=== PATIENT | female | born 1960 | race American Indian/Alaskan Native ===

== ENCOUNTER 2018-07-08 00:48 | Inpatient (IN) | payer MEDICAID ==
[2018-07-08 01:00] VITALS: O2SAT 100
--- NOTE | 2018-07-08 01:11 | ED PDOC ---
Psych Transfer Clearance - Clearance Statement Clearance Statement: Reviewed vital signs, lab results and transfer papers. Patient clinically stable for psychiatric admission. Accepted by Dr. Rebolledo, Cleared by Dr. Zuniga.
[2018-07-08] MEDS ORDERED: DiphenhydrAMINE 50 mg/ml Inj IM PRN (01:37)
[2018-07-08] MEDS ORDERED: Alum-Mag Hydrox-Simethicone Susp (30 mL) PO PRN (01:37)
[2018-07-08] MEDS ORDERED: Magnesium Hydroxide Susp 30 ml UD PO PRN (01:37)
--- NOTE | 2018-07-08 02:22 | PCM.BM ---
<HernandezSydnie - Last Filed: 07/08/18 02:20> Treatment Plan Problems - Problems identified on initial assessmt medication nonadherence Date Initiated: 07/08/18 Time Initiated: : Assessment reference: NA Status: Active self harm Date Initiated: 07/08/18 Time Initiated: : Assessment reference: NA Status: Active Treatment assets and liabiliti Patient Assests: other Patient Liabilities: live alone, physical pain, poor support system - Milieu Protocol Maintain good personal hygiene: daily Encourage regular showers, daily Remind patient to perform daily oral care, daily Assist patient to perform ADL's Conduct patient checks and document Observation sheet: Q15 minutes Maintain personal safety: every shift Educate patient to report safety concerns to staff, every shift Monitor environment for contraband/sharps Medication safety: Monitor for expected outcome, potential side effects: every shift, Assess barriers to learning: every shift, Assess readiness for medication education: every shift Family Contact Family involvement: No known Family/SO <Raquel Rebolledo - Last Filed: 07/08/18 10:18> - Diagnosis (1) Bipolar disorder Status: Acute Interventions: Medication management, Individual and group therapy, Psychoeducation 07/08/18 10:18 <Nhung Guo - Last Filed: 07/09/18 15:58> Family Contact Family involvement: No known Family/SO - Goals for Treatment Patient goals for treatment: Pt will improve overall mood. Pt will be free of suicide thoughts. Pt shaista be compliant with prescribed medications. Pt will attend clinical and activity groups. Pt will develop different coping skills and strategies to distract thoughts when rumintaing on the past. Discharge/Continuing Care - Education Needs Education Needs: Patient Medication, Patient Diagnosis/Disease Process, Patient Coping Skills, Patient Placement options, Patient Community resources, Patient Activities of Daily Living, Patient Uses of Medical Equipment, Patient Health Practices/Safety, Patient Personal Hygiene/Grooming, Patient Aftercare Safety Plan - Discharge Discharge Criteria: Tolerates medication w/o severe side effects, Free of Suicidal thoughts, Free of agitation, Normal sleep pattern, Ability to care for self Discharge to:: Home - Additional Comments 07/09/18 15:55 Pt refused to attend team meeting in the activity room. Interdisciplinary team met with pt at bedside. Pt was observed to be asleep and easily aroused. Pt refused to engage in team meeting at bedside. Pt was irritable and agitated. Reason for admission reviewed and discussed. Pt admitted due to worsening depression and suicide attempt. Pt as a transfer from [facility]. Pt's medications reviewed with attending physician. Pt's social and emotional support is unknown due to pt's poor cooperation. Tx plan reveiwed and discussed. SW will continue to follow case. - Treatment Team Participation Discussed with Family/SO: No Was Patient/Family/SO present at Treatment Team Meeting: Yes
[2018-07-08 07:22] LABS: BASO # 0.1 K/uL (0.0-0.2); BASO % 1.4 % (0.0-2.0); EOS # 0.2 K/uL (0.0-0.7); EOS % 4.4 % (0.0-4.0); HEMOGLOBIN 12.9 g/dL (12.0-16.0); LYMPH # 1.6 K/uL (1.0-4.3); LYMPH % 36.4 % (20.0-40.0); MEAN CELL VOLUME 101.3 fl (81.0-99.0); MEAN CORPUSCULAR HEMOGLOBIN 34.5 pg (27.0-31.0); MEAN CORPUSCULAR HGB CONC 34.1 g/dL (33.0-37.0); MEAN PLATELET VOLUME 8.4 fl (7.2-11.7); MONO # 0.5 K/uL (0.0-0.8); NEUT % 46.8 % (50.0-75.0); RBC 3.74 Mil/uL (3.80-5.20); RED CELL DISTRIBUTION WIDTH 13.9 % (11.5-14.5); WHITE BLOOD COUNT 4.3 K/uL (4.8-10.8)
[2018-07-08 07:30] LABS: ALB/GLOB RATIO 1.3 (1.0-2.1); ALBUMIN 3.9 g/dL (3.5-5.0); ALT/SGPT 12 U/L (9-52); AST/SGOT 19 U/L (14-36); BLOOD UREA NITROGEN 13 mg/dl (7-17); CALCIUM 9.5 mg/dL (8.4-10.2); GFR NON-AFRICAN AMERICAN > 60; HDL CHOLESTEROL 42 MG/DL (30-70)
[2018-07-08 07:41] LABS: LDL CHOLESTEROL 156 mg/dL (0-129)
[2018-07-08 08:20] LABS: T4 6.53 ug/dl (5.5-11.0)
--- NOTE | 2018-07-08 10:24 | PCM.PSYCH ---
Initial Psychiatric Evaluation - Initial Psychiatric Evaluation Type of Admission: Voluntary Legal Status: Capacity Chief Complaint (in patient's own words): "I tried to kill myself." Patient's Reaction to Hospitalization: HPI: 58 yo female w/ h/o Bipolar Disorder, admitted s/p suicide attempt by overdose of 6 Anacin and 2 Motrin, in response to [facility] telling her to kill herself in the context of non-compliance with Zyprexa x 1 month. Patient reports worsening depression, anxiety, sleep/appetite disturbances. She also reports that she has been feeling paranoid that someone wants to harm her. She is able to contract for safety at this time. PPHx: H/o Bipolar disorder; not compliant w/ Zyprexa x 1 month after her psychiatric retired. PMHx: Denies chronic medical issues ALL: NKDA SHx: Lives alone, denies drugs/etoh, smokes 1ppd (declined smoking cessation), on SSD, retired, used to work in medical billing FHx: Denies family h/o mental illness Current Medications: Active Medications Generic Name Dose Route Start Last Admin Trade Name Freq PRN Reason Stop Dose Admin Acetaminophen 650 mg 07/08/18 05:21 Tylenol 325mg Tab PO Q4 PRN Other Al Hydrox/Mg Hydrox/Simethicone 30 ml 07/08/18 01:37 Maalox Plus 30 Ml PO Q4 PRN Dyspepsia Diphenhydramine HCl 50 mg 07/08/18 01:37 Benadryl IM Q6 PRN Extrapyramidal S/S Unable PO Diphenhydramine HCl 50 mg 07/08/18 01:37 Benadryl PO Q6 PRN Extrapyramidal Symptoms Haloperidol 5 mg 07/08/18 01:37 Haldol PO Q4 PRN Agitation Haloperidol Lactate 5 mg 07/08/18 01:37 Haldol IM Q4 PRN Agitation, Unable to Take PO Ibuprofen 600 mg 07/08/18 05:24 Motrin Tab PO Q8 PRN Pain, severe (8-10) Lorazepam 1 mg 07/08/18 02:14 Ativan PO Q8 PRN Agitation Lorazepam 2 mg 07/08/18 02:16 Ativan IM Q6 PRN Agitation Magnesium Hydroxide 30 ml 07/08/18 01:37 Milk Of Magnesia PO HS PRN Constipation Olanzapine 10 mg 07/08/18 22:00 Zyprexa PO HS EMILY Past Psychiatric History - Past Psychiatric History Pertinent Medical Hx (Current Medical&Sleep Prob, Allergies): Allergies Allergy/AdvReac Type Severity Reaction Status Date / Time No Known Allergies Allergy Verified 07/08/18 00:55 Review of Systems - Psychiatric Psychiatric: As Per HPI, Abnormal Sleep Pattern, Anhedonia, Anxiety, Auditory Hallucinations, Behavioral Changes, Change in Appetite, Depression, Difficulty C oncentrating, Hallucinations, Hopelessness, Irritability, Mood Swings, Paranoia, Suicidal Ideation Mental Status Examination - Personal Presentation Personal Presentation: Looks older than stated age - Affect Affect: Constricted, Depressed - Motor Activity Motor Activity: Calm - Reliability in Providing Information Reliability in Providing Information: Fair - Speech Speech: Organized, Coherent - Mood Mood: Depressed, Anxious - Formal Thought Process Formal Thought Process: Paranoia - Obsessions/Compulsions Obsessions: No Compulsions: No - Cognitive Functions Orientation: Person, Place, Situation, Time Sensorium: Alert Judgement: Imparied, as evidence by: Poor judgement Memory: Recent intact, as evidence by: Ability to recall events of the day, Remote intact, as evidenced by: Abilit to recall sig. life events - Risk Risk: Suicidal - Strength & Assets Inventory Strength & Assets Inventory: Cooperative - Limitations Limitations: Living alone DSM 5 DX - DSM 5 DSM 5 Diagnosis: Bipolar Disorder - Recommended/Plan of Treatment Treatment Recommendations and Plan of Treatment: Bipolar Disorder -Admit to psychiatry unit -Individual and group therapy -Psychoeducation -Restart Zyprexa -Medicine consult -Disposition planning -Patient declined smoking cessation Projected ELOS: 7-10 days Discharge Plan and Discharge Criteria: Discharge patient when she is psychiatrically stable - Smoking Cessation Smoking Cessation Initiated: Yes
--- NOTE | 2018-07-08 12:07 | RAD ---
PROCEDURE: Right Hip Radiographs. HISTORY: Right hip pain post fall COMPARISON: None. FINDINGS: BONES: No acute fracture. Right hip osteophytosis. JOINTS: Right hip narrowing with subchondral sclerosis, cystic change. SOFT TISSUES: Normal. OTHER FINDINGS: Calcified uterine fibroid. IMPRESSION: Right hip arthritic changes. No acute fracture.
--- NOTE | 2018-07-08 18:59 | CP.PCM.CON ---
History of Present Illness - History of Present Illness History of Present Illness: 58 yo female with history of bipolar do admitted to psyche unit because of suicide attempt. Also complained of pain on right knee and hip after a fall yesterday. Review of Systems - Review of Systems All systems: reviewed and no additional remarkable complaints except (aside from those mentioned above, 12 point system review were negative by me) Past Patient History - Tetanus Immunizations Tetanus Immunization: Unknown - Past Social History Smoking Status: Heavy Smoker > 10 Cigarettes Daily Chewing Tobacco Use: No Cigar Use: No Alcohol: None Drugs: Denies - CARDIAC Hx Cardiac Disorders: No - PULMONARY Hx Respiratory Disorders: No - NEUROLOGICAL Hx Neurological Disorder: No - HEENT Hx HEENT Problems: No - RENAL Hx Chronic Kidney Disease: No - ENDOCRINE/METABOLIC Hx Endocrine Disorders: No - HEMATOLOGICAL/ONCOLOGICAL Hx Sickle Cell Disease: Yes Hx Unexplained Bleeding: Yes (as per [facility] records) - INTEGUMENTARY Hx Dermatological Problems: No - MUSCULOSKELETAL/RHEUMATOLOGICAL Hx Falls: Yes - GASTROINTESTINAL Hx Gastrointestinal Disorders: No - GENITOURINARY/GYNECOLOGICAL Hx Genitourinary Disorders: No - PSYCHIATRIC Hx Bipolar Disorder: Yes - SURGICAL HISTORY Hx Surgeries: No - ANESTHESIA Hx Anesthesia: No Meds Allergies/Adverse Reactions: Allergies Allergy/AdvReac Type Severity Reaction Status Date / Time No Known Allergies Allergy Verified 07/08/18 00:55 - Medications Medications: Current Medications Acetaminophen (Tylenol 325mg Tab) 650 mg PO Q4 PRN PRN Reason: Other Last Admin: 07/08/18 18:09 Dose: 650 mg Al Hydrox/Mg Hydrox/Simethicone (Maalox Plus 30 Ml) 30 ml PO Q4 PRN PRN Reason: Dyspepsia Diphenhydramine HCl (Benadryl) 50 mg IM Q6 PRN PRN Reason: Extrapyramidal S/S Unable PO Diphenhydramine HCl (Benadryl) 50 mg PO Q6 PRN PRN Reason: Extrapyramidal Symptoms Haloperidol (Haldol) 5 mg PO Q4 PRN PRN Reason: Agitation Haloperidol Lactate (Haldol) 5 mg IM Q4 PRN PRN Reason: Agitation, Unable to Take PO Ibuprofen (Motrin Tab) 600 mg PO Q8 PRN PRN Reason: Pain, severe (8-10) Lorazepam (Ativan) 1 mg PO Q8 PRN PRN Reason: Agitation Lorazepam (Ativan) 2 mg IM Q6 PRN PRN Reason: Agitation Magnesium Hydroxide (Milk Of Magnesia) 30 ml PO HS PRN PRN Reason: Constipation Olanzapine (Zyprexa) 10 mg PO HS EMILY Physical Exam - Constitutional Appears: No Acute Distress - Head Exam Head Exam: ATRAUMATIC - Eye Exam Eye Exam: absent: Scleral icterus - ENT Exam ENT Exam: Mucous Membranes Moist - Neck Exam Neck exam: Negative for: Meningismus - Respiratory Exam Respiratory Exam: absent: Rales, Rhonchi, Wheezes, Respiratory Distress - Cardiovascular Exam Cardiovascular Exam: REGULAR RHYTHM, +S1, +S2 - GI/Abdominal Exam GI & Abdominal Exam: Soft. absent: Tenderness - Rectal Exam Rectal Exam: Deferred - Extremities Exam Extremities exam: Negative for: full ROM (limited ROM on right knee and hip because of pain) - Back Exam Back exam: NORMAL INSPECTION - Neurological Exam Neurological exam: Alert, Oriented x3 - Psychiatric Exam Psychiatric exam: Normal Affect - Skin Skin Exam: Dry, Intact Results - Vital Signs Recent Vital Signs: Last Vital Signs Temp 98.9 F 07/08/18 16:09 Pulse 65 07/08/18 16:09 Resp 19 07/08/18 16:09 BP 119/75 07/08/18 16:09 Pulse Ox 100 07/08/18 00:51 - Labs Result Diagrams: 07/08/18 06:30 07/08/18 06:30 Labs: Laboratory Results - last 24 hr 07/08/18 07/08/18 07/08/18 06:30 06:30 06:30 WBC 4.3 L RBC 3.74 L Hgb 12.9 Hct 37.8 MCV 101.3 H MCH 34.5 H MCHC 34.1 RDW 13.9 Plt Count 255 MPV 8.4 Neut % (Auto) 46.8 L Lymph % (Auto) 36.4 [place] % (Auto) 11.0 H Eos % (Auto) 4.4 H Baso % (Auto) 1.4 Neut # (Auto) 2.0 Lymph # (Auto) 1.6 [place] # (Auto) 0.5 Eos # (Auto) 0.2 Baso # (Auto) 0.1 Sodium 138 Potassium 4.4 Chloride 102 Carbon Dioxide 28 Anion Gap 12 BUN 13 Creatinine 0.8 Est GFR ( Amer) > 60 Est GFR (Non-Af Amer) > 60 Random Glucose 90 Calcium 9.5 Total Bilirubin 0.4 AST 19 ALT 12 Alkaline Phosphatase 85 Total Protein 7.1 Albumin 3.9 Globulin 3.1 Albumin/Globulin Ratio 1.3 Triglycerides 78 Cholesterol 220 H LDL Cholesterol Direct 156 H HDL Cholesterol 42 Thyroxine (T4) 6.53 TSH 3rd Generation 1.57 RPR Nonreactive Assessment & Plan (1) Suicide attempt Status: Acute Comment: psyche is managing
--- NOTE | 2018-07-09 08:29 | PCM.PYCHPN ---
Psychiatric Progress Note - Psychiatric Progress Note Patient seen today, length of contact: Pt evaluated, case discussed w/ team, chart reviewed Patient Chief Complaint: "I tried to kill myself." Problems Identified/Issues Discussed: Patient continues to report feeling depressed and anxious. She denies acute AH/VH, but patient seems internally preoccupied and has been observed talking to herself. She denies acute SI/plan/intent. No adverse effects to Zyprexa re ported. Medication Change: No Medical Record Reviewed: Yes Consults ordered or reviewed: Medicine consult Mental Status Examination - Cognitive Function Orientation: Person, Place, Situation, Time Memory: Intact Decription of patient's judgement and insights: Poor I/J - Mood Mood: Depressed, Anxious - Affect Affect: Constricted, Depressed - Formal Thought Process Formal Thought Process: No Impairment Psychotic Thoughts and Behaviors: Denies acute AH/VH; but patient observed to be talking to herself and seems internally preoccupied - Suicidal Ideation Suicidal Ideation: No - Homicidal Ideation Homicidal Ideation: No Goal/Treatment Plan - Goal/Treatment Plan Need for Continued Stay: Remain at risks for inpatient hospitalization, Severe depression anxiety, Discharge may exacerbated symptoms Progress Toward Problem(s) and Goals/Treatment Plan: Bipolar Disorder w/ Psychotic Features -Individual and group therapy -Psychoeducation -Continue Zyprexa -Medicine consult -Disposition planning -Patient declined smoking cessation
[2018-07-10 06:47] VITALS: BP 101/62; PULSE 88; RESP 16; TEMP 97.2
--- NOTE | 2018-07-10 08:54 | PCM.PYCHDC ---
Mental Status Examination - Mental Status Examination Orientation: Person, Place, Situation, Time Memory: Intact Mood: Neutral Affect: Broad Speech: Appropriate Attention: WNL Concentration: WNL Association: WNL Fund of Knowledge: WNL Formal Thought Process: No Impairment Description of patient's judgement and insight: Fair I/J Psychotic Thoughts and Behaviors: Denies acute AH/VH Suicidal Ideation: No Current Homicidal Ideation?: No Discharge Summary - Discharge Note Reason for Hospitalization: HPI: 58 yo female w/ h/o Bipolar Disorder, admitted s/p suicide attempt by overdose of 6 Anacin and 2 Motrin, in response to [facility] telling her to kill herself in the context of non-compliance with Zyprexa x 1 month. Patient rep orts worsening depression, anxiety, sleep/appetite disturbances. She also reports that she has been feeling paranoid that someone wants to harm her. She is able to contract for safety at this time. PPHx: H/o Bipolar disorder; not compliant w/ Zyprexa x 1 month after her psychiatric retired. PMHx: Denies chronic medical issues ALL: NKDA SHx: Lives alone, +Cocaine abuse; denies etoh, smokes 1ppd (declined smoking cessation), on SSD, retired, used to work in medical billing FHx: Denies family h/o mental illness Laboratory Data: Abnormal Lab Results 07/08/18 06:30 Hemoglobin A1c 5.3 Consultations:: List each consultation separately and include: 1. Reason for request. 2. Findings. 3. Follow-up Consultations: Medicine consult Summary of Hospital Course include:: 1. Description of specific treatment plan utilized for patients during their course of treatmen. 2. Summarize the time- course for resolution of acute symptoms and/or regressed behaviors. 3. Describe issues identified and worked on during hospitalization. 4. Describe medication utilized. 5. Describe medical problems identified and treated. 6. Reassessment of suicide risk Summary of Hospital Course: Patient was admitted to the psychiatry unit. Individual and group therapy were provided. Psychoeducation provided on the dangers of cocaine abuse. Patient was restarted on Zyprexa. She submitted a 48 hr letter requesting to be discharged, was screened by [facility] and found to not meet criteria for involuntary psychiatric commitment. - Diagnosis (1) Bipolar disorder Current Visit: Yes Status: Acute (2) Cocaine abuse Current Visit: Yes Status: Acute - Final Diagnosis (DSM 5) Condition upon Discharge: STABLE DSM 5: Bipolar Disorder; Cocaine Use Disorder Disposition: AGAINST MEDICAL ADVICE Follow-up Treatment Plan: Bipolar Disorder; Cocaine Use Disorder -Discharge AMA Prescriptions/Medication Reconciliation: OLANZapine [Zyprexa] 10 mg PO HS #30 tab - Smoking Cessation Smoking Cessation Medication prescribed: No Reason for not providing: Patient declined - Antipsychotic Medications Pt discharged on 2 or more routine antipsychotic medications: No
== END 2018-07-10 10:00 | disposition left against medical advice (07) | DRG 430 ==
LOC: H.ER 00:48 → H.STEP 01:09
PROVIDERS: ADMIT Psychiatry & Neurology Psychiatry; ATTEND Psychiatry & Neurology Psychiatry
PROC: GZHZZZZ Group Psychotherapy (ICD-10-PCS; principal; 2018-07-08)
PROC: HZ56ZZZ Individual Psychotherapy for Substance Abuse Treatment, Psychoeducation (ICD-10-PCS; 2018-07-08)
DX: F31.9 Bipolar disorder, unspecified (principal); F14.10 Cocaine abuse, uncomplicated; D57.1 Sickle-cell disease without crisis; Z91.14 Patient's other noncompliance with medication regimen; M25.561 Pain in right knee; M25.551 Pain in right hip; F17.210 Nicotine dependence, cigarettes, uncomplicated